=== PATIENT | female | born 1945 | race Caucasian/White ===

== ENCOUNTER → 2016-12-11 | Outpatient (CLI) | payer OTHER ==
[~2016-12-11] MED LIST: ADVAIR 250-501 EACH INH; BENICAR40 MG PO; LISINOPRIL-HCT1 EAC2 PO; PERCOCET 5-3251 EACH PO; PERCOCET 7.5-31 EACH PO; PRILOSEC 20 MG20 MG PO; VIVELLE-DOT1 EAC1 TOP
== END ==
LOC: CAT 14:48
DX: Z09 Encounter for follow-up examination after completed treatment for conditions other than malignant neoplasm (principal)

== ENCOUNTER → 2016-12-21 | Outpatient (CLI) | payer OTHER ==
--- NOTE | ~2016-12-21 | EKG ---
[place] [address] [facility] [employer] [place] [address] ELECTROCARDIOGRAM REPORT Name: RADHA MERCADO Room #: [facility]#: [id number] Admission: 12/21/16 Attend Phys: Irene Estrada MD Discharge: Date of : 49 Report #: [id number] THIS REPORT FOR: //name// [facility] Test Date: 2016-12-21 Test Time: 16:22:38 Pat Name: RADHA MERCADO Department: Room: Gender: F Residential Manager: LUIS : 1945 Requested By: Emily Rosario Order Number: [id number] MD: Jose Santo Measurements Intervals [place] Rate: 64 P: 76 CA: 146 QRS: 96 QRSD: 127 T: 52 QT: 459 QTc: 474 Interpretive Statements Sinus rhythm RBBB and LPFB Compared to ECG 03/11/2016 11:45:52 Left posterior fascicular block now present Right bundle-branch block now present Electronically Signed On 12-22-2016 8:53:21 CDT by Jose Santo [email or web address] <ELECTRONICALLY SIGNED> By: Jose Santo MD, [facility] 12/22/16 0853 1622 162 Jose Santo MD, [facility] /EPI
[2016-12-21 16:41] LABS: CREATININE 0.8 mg/dL (0.6-1.0)
== END ==
LOC: CV 15:42
PROVIDERS: Anesthesiology
DX: Z01.818 Encounter for other preprocedural examination (principal); I10 Essential (primary) hypertension

== ENCOUNTER → 2017-10-14 | Outpatient (CLI) | payer OTHER ==
--- NOTE | ~2017-10-14 | EKG ---
[address] [address] ELECTROCARDIOGRAM REPORT Name: RADHA MERCADO [id number] Admission: 10/14/17 Attend Phys: Irene Estrada MD Discharge: Date of : 49 Report #: [id number] THIS REPORT FOR: //name// [facility] Test Date: 2017-10-14 Test Time: 16:29:03 Pat Name: RADHA MERCADO Department: Room: Gender: F [employer] Inspector: Oscar KOROMA : 1945 Requested By: Irene Estrada Order Number: [id number] MD: Jose Santo Measurements Intervals [place] Rate: 56 P: 72 MD: 133 QRS: 96 QRSD: 134 T: 41 QT: 475 QTc: 459 Interpretive Statements Sinus rhythm RBBB and LPFB Baseline wander in lead(s) I Compared to ECG 12/21/2016 16:22:38 No significant changes Electronically Signed On 10-15-2017 8:24:43 ORE [employer]ER by Jose Santo [email or web address] <ELECTRONICALLY SIGNED> By: Jose Santo MD, [facility] 10/15/17 0824 28 28 Jose Santo MD, [facility] /EPI
[2017-10-14 16:51] LABS: CALCIUM 9.9 mg/dL (8.5-10.1); CREATININE 0.8 mg/dL (0.6-1.0); POTASSIUM 3.8 mmol/L (3.5-5.1)
== END ==
LOC: CV 15:48
PROVIDERS: Anesthesiology
DX: Z01.818 Encounter for other preprocedural examination (principal); I10 Essential (primary) hypertension

== ENCOUNTER 2018-07-12 05:27 | Day surgery (SDC) | payer OTHER ==
[~2018-07-12] VITALS: Ht 160 cm; Wt 66.7 kg
--- NOTE | ~2018-07-12 | O ---
[facility] [place] [address] OPERATIVE REPORT Name: RADHA MERCADO Room #: 150-4 [facility]#: [id number] Admission: 07/12/18 Attend Phys: Parag Lopez MD Discharge: Date of : 49 Report #: [id number] THIS REPORT FOR: //name// CC: Parag Lopez [facility] DATE OF SERVICE: 07/12/2018 PREOPERATIVE DIAGNOSES: 1. Right foot retained hardware. 2. Left foot hallux rigidus. POSTOPERATIVE DIAGNOSES: 1. Right foot retained hardware. 2. Left foot hallux rigidus. PROCEDURE: 1. Right foot hardware removal. 2. Left foot great toe cheilectomy. SURGEON: Parag Lopez MD ANESTHESIA: General. ESTIMATED BLOOD LOSS: Minimal. DRAINS: No drains. TOURNIQUET TIME: 30 minutes on the right and 30 minutes on the left. COMPLICATIONS: There were no complications. DESCRIPTION OF PROCEDURE: The patient was brought to the operating room where she was placed under general anesthesia. Once under adequate general anesthesia, her bilateral lower extremities were prepped and draped in sterile manner. The right lower extremity was elevated, exsanguinated, tourniquet placed to 300 mmHg. A dorsal incision to the patient's previous scar was then made. This was dissected down through soft tissue to the dorsal plate and screws. These were then subsequently removed with the small star screwdriver from the [employer] set. The 4-0 cannulated screw was then removed as well with the small fragment screwdriver. Once removed, the wound was irrigated copiously and closed with 2-0 Vicryl in subcutaneous tissues and 3-0 nylon for the skin. The wound was dressed with Xeroform, 4 x 4s, and sterile soft compressive dressing was placed. Tourniquet on the right side was let down at 30 minutes. The left side was then elevated, exsanguinated, tourniquet placed to 250 mmHg. A dorsal medial incision was made over the metatarsophalangeal joint of the [address] [address] OPERATIVE REPORT Name: RADHA MERCADO Room #: 150-4 [facility]..#: [id number] Admission: 07/12/18 Attend Phys: Parag Lopez MD Discharge: Date of : 49 Report #: [id number] great toe. This was dissected down through soft tissue to the MTP joint. A sagittal saw was then used to resect the dorsal osteophytes at the first metatarsal head and as well a rongeur was used to remove them at the base of the proximal phalanx. Once complete, the toes able to be dorsiflexed to 90 degrees. Excellent decompression of the joint had been achieved. The wound was then irrigated copiously and closed with 2-0 Vicryl in the capsular layer, 2-0 Vicryl in subcutaneous tissues and 3-0 nylon for the skin. The wounds were dressed with Xeroform, 4 x 4s, and sterile soft compressive dressing was placed. Tourniquet was let down at 30 minutes. Toes were pink and warm with good capillary refill. There were no complications from the procedure. The patient tolerated the procedure well and was taken to recovery room without incident. By: 1315 [id number] Parag Lopez MD /nt
[~2018-07-12 05:27] MED LIST changes: +BIOTIN1 MG PO; +MULTI VITAMIN1 EACH PO; +VENTOLIN HFA 1818 GM INH; +VITAMIN D32000 UNIT PO
[2018-07-12 11:25] LABS: CALCIUM 9.9 mg/dL (8.5-10.1); CREATININE 0.9 mg/dL (0.6-1.0); POTASSIUM 3.6 mmol/L (3.5-5.1)
[2018-07-12 12:34] VITALS: BP 149/66
[2018-07-12] MEDS ORDERED: PERCOCET 7.5-31 EACH PO (13:06)
[2018-07-12 13:22] VITALS: BP 149/66
== END 2018-07-12 14:20 | disposition home or self-care (01) ==
LOC: OR 05:27 → TBA 05:29 → OR 13:03
PROVIDERS: Orthopaedic Surgery Foot and Ankle Surgery
DX: Z47.2 Encounter for removal of internal fixation device (principal); M20.22 Hallux rigidus, left foot; M25.775 Osteophyte, left foot; M19.071 Primary osteoarthritis, right ankle and foot; I10 Essential (primary) hypertension; G43.909 Migraine, unspecified, not intractable, without status migrainosus; K21.9 Gastro-esophageal reflux disease without esophagitis; J45.909 Unspecified asthma, uncomplicated; Z90.89 Acquired absence of other organs; Z90.49 Acquired absence of other specified parts of digestive tract; Z98.890 Other specified postprocedural states; Z79.899 Other long term (current) drug therapy; Z98.42 Cataract extraction status, left eye; Z98.41 Cataract extraction status, right eye
CPT/HCPCS: 50010; 50101; 50386; 50951; 51412; 56524; 56527; 57091; 57179; 62110; 62900; 70005